=== PATIENT | male | born 1965 | race Hispanic/Latino ===

== ENCOUNTER 2018-02-15 17:43 | Emergency (ER) | payer OTHER ==
[2018-02-15] MEDS ORDERED: HYDROCODONE/ACETAMINOPHEN 5/325 MG TAB ONE (18:01)
== END 2018-02-15 19:20 | disposition home or self-care (01) ==
LOC: EDH 17:43
DX: S80.12XA Contusion of left lower leg, initial encounter (principal); I10 Essential (primary) hypertension; E11.9 Type 2 diabetes mellitus without complications; E78.5 Hyperlipidemia, unspecified; Z72.0 Tobacco use; V49.59XA Passenger injured in collision with other motor vehicles in traffic accident, initial encounter; Y93.89 Activity, other specified; Y92.89 Other specified places as the place of occurrence of the external cause; Y99.8 Other external cause status
CPT/HCPCS: 71045; 72170; 73590

== ENCOUNTER 2022-02-25 09:07 | Emergency (ER) | payer OTHER ==
[~2022-02-25] VITALS: Ht 188 cm; Wt 115.4 kg
[2022-02-25 09:28] VITALS: BP 153/91
[2022-02-25] MEDS ORDERED: CIPROFLOXACIN HCL 0.2%/HYDROCORT 1% 10 ML OTIC SUSP OTIC SCH (09:30)
[2022-02-25] MEDS ORDERED: ACETAMINOPHEN WITH CODEINE 1 TAB TAB PO ONE (09:30)
[2022-02-25] MEDS ORDERED: IBUPROFEN 600 MG TABLET PO ONE (09:30)
[2022-02-25] MEDS ORDERED: IBUP-2070 PO (09:32)
[2022-02-25] MEDS ORDERED: CIPR7.5D OT (09:32)
[2022-02-25] MEDS ORDERED: ACET-2079 PO (09:32)
== END 2022-02-25 09:55 | disposition home or self-care (01) ==
LOC: EDH 09:07
DX: S09.21XA Traumatic rupture of right ear drum, initial encounter (principal); E11.9 Type 2 diabetes mellitus without complications; I10 Essential (primary) hypertension; Z59.00 Homelessness unspecified; X58.XXXA Exposure to other specified factors, initial encounter; Y93.89 Activity, other specified; Y92.89 Other specified places as the place of occurrence of the external cause; Y99.8 Other external cause status

== ENCOUNTER 2022-02-27 02:10 | Emergency (ER) | payer OTHER ==
[~2022-02-27] VITALS: Ht 188 cm; Wt 119.3 kg
[~2022-02-27 02:10] MED LIST: ACET-2079 PO; CIPR7.5D OT; IBUP-2070 PO
[2022-02-27 02:28] VITALS: BP 111/79
[2022-02-27] MEDS ORDERED: AMOX500C2 PO (03:08)
[2022-02-27] MEDS ORDERED: CIPR7.5D OT (03:08)
[2022-02-27] MEDS ORDERED: ACETAMINOPHEN 325 MG TAB ONE (03:35)
[2022-02-27] MEDS ORDERED: ACETAMINOPHEN 325 MG TAB PO ONE (04:00)
== END 2022-02-27 03:38 | disposition home or self-care (01) ==
LOC: EDH 02:10
DX: H66.91 Otitis media, unspecified, right ear (principal); E11.9 Type 2 diabetes mellitus without complications; E78.00 Pure hypercholesterolemia, unspecified; I10 Essential (primary) hypertension; Z79.1 Long term (current) use of non-steroidal anti-inflammatories (NSAID)

== ENCOUNTER 2024-11-12 01:49 | Inpatient (IN) | payer SELFPAY ==
[2024-11-12] VITALS (9 sets, daily range): BP systolic 124–150; BP diastolic 71–101; PULSE 92–108; RESP 18–24; TEMP 98.1–100.6; O2SAT 95
[~2024-11-12] VITALS: Ht 180.3 cm; Wt 126.6 kg
[~2024-11-12 01:49] MED LIST changes: +AMOX500C2 PO
[2024-11-12 02:12] LABS: BASOPHILS # (AUTO) 0.03 K/uL (0.00-0.20); BASOPHILS % (AUTO) 0.5 % (0.0-5.0); EOSINOPHILS # (AUTO) 0.04 K/uL (0.00-0.70); EOSINOPHILS % (AUTO) 0.7 % (0.0-8.0); HEMATOCRIT 47.6 % (42-54); IMMATURE GRANULOCYTE ABSOLUTE 0.03 K/uL (0-1); LYMPHOCYTES % (AUTO) 34.5 % (21.0-51.0); MEAN CORPUSCULAR HEMOGLOBIN 29.4 pg (27.0-33.0); MEAN CORPUSCULAR HGB CONC 33.8 g/dL (32.0-36.0); MEAN CORPUSCULAR VOLUME 86.9 fL (79-99); MONOCYTES # (AUTO) 0.7 K/uL (0.1-1.0); MONOCYTES % (AUTO) 11.4 % (3.0-13.0); NEUTROPHILS # (AUTO) 3.1 K/uL (1.8-7.7); NEUTROPHILS % (AUTO) 52.4 % (40.0-77.0); PLATELET COUNT (AUTO) 199 K/uL (130-400); RED BLOOD CELL COUNT(AUTO) 5.48 MIL/uL (4.50-6.20); RED CELL DISTRIBUTION WIDTH 12.5 % (11.0-15.5); WHITE BLOOD COUNT (AUTO) 5.9 K/uL (4.8-10.8)
[2024-11-12 02:20] LABS: CREATININE 0.8 mg/dL (0.5-1.3)
[2024-11-12] MEDS ORDERED: IOHEXOL 350 MG/ML 100ML INFUS..BTL IV ONE (03:25)
--- NOTE | 2024-11-12 03:34 | NUR ---
ER PHYSICIAN DR HENDERSON AWARE OF PATIENT REFUSAL, OK TO DO CT WITHOUT CONTRAST
--- NOTE | 2024-11-12 03:34 | NUR ---
PATIENT PULLED OUT IV LINE, PATIENT ASKED WHAT HAPPENED TO IV. PATIENT STATED, IT FELL OUT. PATIENT INFORMED THE ER PHYSICIAN ORDERED CT SCAN WITH IV CONTRAST, PATIENT MADE AWARE HE WOULD NEED AN IV LINE FOR THE EXAM. PATIENT REFUSED THE IV PLACEMENT. PATIENT AGREED TO CT SCAN WITHOUT CONTRAST. PATIENT TAKEN TO CT SCAN
--- NOTE | 2024-11-12 03:43 | ERN ---
General Chief Complaint: Rib Pain Stated Complaint: C/O PAIN TO RIGHT RIBS AFTER FALL TONIGHT Time Seen by MD: 01:51 Source: patient History of Present Illness Initial Comments PATIENT IS A 59-YEAR-OLD MALE COMING IN TO BE EVALUATED FOR RIGHT ABDOMINAL RIGHT RIB PAIN. PER PATIENT EARLIER TODAY HE FELL DOWN AND STATES HE WAS HAVING PAIN IN THE RIGHT SIDE. PATIENT STABLE TO BREATHE WITHOUT ANY DISCOMFORT. Allergies: Coded Allergies: No Known Allergies (Unverified Allergy, Unknown, 02/25/22) Home Meds Active Scripts Ciprofloxacin HCl/Dexameth (Ciprodex Otic Suspension) 7.5 Ml Drops.susp, 7.5 ML OT TID for 5 Days, #4 DROP Prov:JATIN GOMEZ MD 02/27/22 Amoxicillin (Amoxicillin) 500 Mg Capsule, 500 MG PO TID for 10 Days, #30 CAP 0 Refills Prov:JATIN GOMEZ MD 02/27/22 Acetaminophen with Codeine (Acetaminophen-Cod #3 Tablet) 1 Each Tablet, 1 EACH PO QID, #15 TAB Prov:ALEIDA MIRANDA MD 02/25/22 Ibuprofen (Ibuprofen) 600 Mg Tablet, 600 MG PO Q6H PRN for PAIN, #30 TAB Prov:ALEIDA MIRANDA MD 02/25/22 Ciprofloxacin HCl/Dexameth (Ciprodex Otic Suspension) 7.5 Ml Drops.susp, 4 DROP OT BID for 7 Days, #5 ML Prov:ALEIDA MIRANDA MD 02/25/22 Past Medical History Past Medical History: Diabetes-Type II, Hypertension Medical History Other: NON COMPLIANT Past Surgical History: None Social History Social History: Negative, Other ROS Dictation CONSTITUTIONAL: NO CHILLS, NO FEVER, NO WEAKNESS, NO DIAPHORESIS, NO MALAISE. HEAD/FACE: NO SIGNS OF TRAUMA. EENT: NO EYE PAIN, NO BLURRED VISION, NO TEARING, NO DOUBLE VISION, NO EAR PAIN, NO EAR DISCHARGE, NO NOSE PAIN, NO NASAL CONGESTION, NO THROAT PAIN, NO THROAT SWELLING, NO MOUTH PAIN. RESPIRATORY: NO COUGH, NO ORTHOPNEA, NO SOB, NO STRIDOR, NO WHEEZING. CARDIOVASCULAR: NO CHEST PAIN, NO EDEMA, NO PALPITATIONS, NO SYNCOPE. GASTROINTESTINAL/ABDOMINAL: ABDOMINAL PAIN, NO CONSTIPATION, NO DIARRHEA, NO NAUSEA, NO VOMITING. GENITOURINARY: NO ABNORMAL DISCHARGE, NO DYSURIA, NO FREQUENT URINATION, NO HEMATURIA. NO COMPLAINTS OF PAIN IN THE GENITALS. MUSCULOSKELETAL: NO BACK PAIN, NO GOUT, NO JOINT PAIN, NO JOINT SWELLING, NO MUSCLE PAIN, NO MUSCLE STIFFNESS, NO NECK PAIN. INTEGUMENTARY: NO CHANGE IN COLOR, NO CHANGE IN HAIR/NAILS, NO DRYNESS, NO LESION, NO LUMPS, NO RASH. NEUROLOGICAL/PSYCH: NO ANXIETY, NOT DEPRESSED, NO EMOTIONAL PROBLEM, NO HEADACHE, NO NUMBNESS, NO PRE-EXISTING DEFICIT, NO HISTORY OF SEIZURES, NO TREMORS, NO WEAKNESS. HEMATOLOGIC/LYMPHATIC: NOT ANEMIC, NO HISTORY OF BLOOD CLOTS, NO APPARENT BLEEDING, NO BRUISING, GLANDS NOT SWOLLEN. ALL SYSTEMS NEGATIVE, EXCEPT NOTED. Physical Exam Physical Exam Dictation VITAL SIGNS: REVIEWED. GENERAL APPEARANCE: ALERT, ORIENTED X3, NO ACUTE DISTRESS, OBESE. HEAD AND FACE: NON-TRAUMATIC. EYES: PERRL, PINK CONJUNCTIVAS, EYELID NO TRAUMA, ANTERIOR CHAMBER CLEAR. EARS: PINNAS INTACT AND NO SIGNS OF TRAUMA OR ERYTHEMA. EAR CANALS CLEAR AND NO DISCHARGE. TMS NO ERYTHEMA. NOSE: NO DISCHARGE, NO BLEEDING. OROPHARYNX: MOUTH NORMAL, TEETH NO CARIES, TONGUE PINK. PHARYNX CLEAR, NO ERYTHEMA. TONSILS NO EXUDATES, NO ABSCESSES NOTED. MUCOUS MEMBRANE MOIST. NECK: SUPPLE, NON-TENDER, NO THYROMEGALY, NO MASSES, NO JVD, NO BRUITS. BREAST: DEFERRED. CHEST: NO TENDERNESS, NO CREPITUS, NO PARADOXICAL MOVEMENT, NO RETRACTIONS. LUNGS: CLEAR, WELL-VENTILATED, SYMMETRIC, NO RALES, NO WHEEZING, NO RHONCHI, NO STRIDOR, GOOD BREATH SOUNDS BILATERALLY. HEART: REGULAR RATE, REGULAR RHYTHM, NO MURMUR, NO GALLOPS. VASCULAR: NO PERIPHERAL EDEMA. ABDOMEN: SOFT, POSITIVE BOWEL SOUNDS, NONDISTENDED, NO GUARDING, RIGHT FLANK TENDER, NO REBOUND, NO MASSES NO HEPATOMEGALY, NO SPLENOMEGALY, NO HAMPTON'S SIGN, NO HERNIAS. RECTAL: DEFERRED. GENITAL: DEFERRED. NEUROLOGICAL: NORMAL SPEECH, GROSS MOTOR FUNCTION INTACT, GROSS SENSORY FUNCTION INTACT. MUSCULOSKELETAL: NECK NONTENDER, FULL RANGE OF MOTION, BACK NONTENDER, FULL RANGE OF MOTION. EXTREMITIES: NONTENDER, FULL RANGE OF MOTION. SKIN: COLOR PINK, DRY, NO TURGOR, NO RASH, NO LACERATIONS, NO ABRASIONS, NO CONTUSIONS. LYMPHATICS: DEFERRED. Results Laboratory and Microbiology Lab and Micro Result Laboratory Tests Test 11/12/24 02:04 White Blood Count 5.9 K/uL (4.8-10.8) Red Blood Count 5.48 MIL/uL (4.50-6.20) Hemoglobin 16.1 g/dL (14.0-18.0) Hematocrit 47.6 % (42-54) Mean Corpuscular Volume 86.9 fL (79-99) Mean Corpuscular Hemoglobin 29.4 pg (27.0-33.0) Mean Corpuscular Hemoglobin Concent 33.8 g/dL (32.0-36.0) Red Cell Distribution Width 12.5 % (11.0-15.5) Platelet Count 199 K/uL (130-400) Mean Platelet Volume 10.1 fL (7.5-10.5) Immature Granulocyte % (Auto) 0.5 % (0-1) Neutrophils (%) (Auto) 52.4 % (40.0-77.0) Lymphocytes (%) (Auto) 34.5 % (21.0-51.0) Monocytes (%) (Auto) 11.4 % (3.0-13.0) Eosinophils (%) (Auto) 0.7 % (0.0-8.0) Basophils (%) (Auto) 0.5 % (0.0-5.0) Neutrophils # (Auto) 3.1 K/uL (1.8-7.7) Lymphocytes # (Auto) 2.0 K/uL (1.0-4.8) Monocytes # (Auto) 0.7 K/uL (0.1-1.0) Eosinophils # (Auto) 0.04 K/uL (0.00-0.70) Basophils # (Auto) 0.03 K/uL (0.00-0.20) Absolute Immature Granulocyte (auto 0.03 K/uL (0-1) Nucleated Red Blood Cells 0.0 % (0.0-0.19) Sodium Level 134 mmol/L (136-145) L Potassium Level 4.0 mmol/L (3.5-5.1) Chloride Level 96 mmol/L (101-111) L Carbon Dioxide Level 31 mmol/L (21-32) Blood Urea Nitrogen 6 mg/dL (7-18) L Creatinine 0.8 mg/dL (0.5-1.3) Glomerular Filtration Rate Calc 103 mL/min (>90) Random Glucose 245 mg/dL (70-105) H Total Calcium 8.6 mg/dL (8.5-10.1) Total Creatine Kinase 387 U/L (21-232) H Labs Reviewed?: Yes EKG/XRAY/US/CT/MRI CT Scan Comment CT abdomen and pelvis without contrast-right rib fractures with pulmonary contusion, end pitch filler left kidney perinephric stranding to represent trauma MDM MDM: Differential diagnosis: Right rib contusion, trauma, alcohol intoxication, kidney contusion Rationale: Tests considered and ordered secondary to shared decision making include: labs, ECG and radiology Previous outside records reviewed: Old ER visits. Risk of complication and/or morbidity or mortality of patient management: None Medications-Per medication reconciliation Need for hospitalization: Patient does meet criteria for hospitalization. Need for emergency major/minor surgery: No There are no social concerns with this patient. Prescription drug management Prescriptions will include symptomatic care Patient's prior external medical records from other ER visits were reviewed by me as indicated. Prior testing and results from previous visits were reviewed. Prior tests were taken into account with medical decision making and resource utilization, independent historian/historians were used to obtain complete medical history. I independently interpreted the test that were performed, results were reviewed by me and considered findings on radiology if ordered. Medical management and examination interpretation discussions were had by me with other qualified healthcare professionals as indicated for the patient's care. Patient will be admitted under the care of hospitalist group for ongoing management. ED Course Orders Procedure Category Date Status Time Cbc With Differential LAB 11/12/24 Complete 01:54 Basic Metabolic Panel LAB 11/12/24 Complete 01:54 Creatine Kinase, Total LAB 11/12/24 Complete 01:54 Iohexol (Omnipaque) PHA 11/12/24 Complete 03:25 Ct Abdomen/Pelvis W/O CT 11/12/24 Taken Contrast 02:22 Ondansetron 4mg Inj PHA 11/12/24 Complete (Zofran 4mg Inj) 06:00 Morphine 2mg Syg PHA 11/12/24 Complete (Morphine 2mg Syg) 06:00 Alcohol, Blood LAB 11/12/24 Logged 05:57 Drug Screen Urine LAB 11/12/24 Logged 05:57 Current Medications Medications (Trade) Dose Ordered Sig/Hai Route PRN Reason Start Time Stop Time Status Last Admin Dose Admin Iohexol (Omnipaque) 35,000 mg STK-MED ONCE IV 11/12/24 03:25 11/12/24 03:25 DC Morphine Sulfate (morPHINE 2MG SYG) 2 mg ONCE ONCE IVP 11/12/24 06:00 11/12/24 06:01 DC 11/12/24 05:59 Ondansetron HCl (zoFRAN 4MG INJ) 4 mg ONCE ONCE IVP 11/12/24 06:00 11/12/24 06:01 DC 11/12/24 05:59 Vital Signs Date Time Temp Pulse Resp B/P (MAP) Pulse Ox O2 Delivery O2 Flow Rate FiO2 11/12/24 06:19 98.6 76 20 112/78 100 Room Air* 0 21 11/12/24 05:04 98.6 80 20 108/76 100 Room Air* 0 21 11/12/24 02:04 98.6 74 20 128/74 100 Room Air* 0 21 11/12/24 01:51 99.1 90 24 177/103 98 Room Air DX & DISP Disposition: Inpatient Decision to Admit Time: 06:22 Departure Impression: Primary Impression: Pulmonary contusion Additional Impressions: Rib fractures, Alcohol intoxication Condition: Stable Referrals: SELF,REFERRAL (PCP) ROC HENDERSON MD Nov 12, 2024 03:43
[2024-11-12] MEDS: ondanSETRON 4MG INJ IVP ONE (05:59)
[2024-11-12] MEDS: morPHINE 2 MG SYG IVP ONE (05:59)
[2024-11-12] MEDS ORDERED: PoTASSium chloRIDE 20MEQ/100ML 100 ML IV PRN (06:30)
[2024-11-12] MEDS ORDERED: ondanSETRON 4MG INJ IVP PRN (06:30)
[2024-11-12] MEDS ORDERED: PoTASSium chl 10% ELIXIR 20MEQ 20 MEQ/15 ML UDCUP PO PRN (06:30)
[2024-11-12] MEDS ORDERED: PoTASSium chloRIDE 20MEQ ER 20 MEQ ERTAB PO PRN (06:30)
[2024-11-12] MEDS ORDERED: PHARMACY COMMUNICATION MISC PRN (06:30)
[2024-11-12] MEDS ORDERED: LORazepam 2 MG/ML 1 ML VIAL IVP PRN (06:30)
[2024-11-12] MEDS ORDERED: acetaMINOPHEN 325 MG TAB PO PRN (06:30)
--- NOTE | 2024-11-12 06:31 | HP ---
[facility] HISTORY AND PHYSICAL Date of Service: Nov 12, 2024 Time of Service: 06:29 HISTORY OF PRESENT ILLNESS: [ ] This is a 59-year-old male that presents in ER with right rib pain apparently patient had a fall at home prior coming to ED. apparently patient reports he slipped on stairs and landed on his right side. ER WORKUP WAS CONSISTENT WITH RIGHT 10TH RIB FRACTURE IN PERINEPHRIC STRANDING CRITICAL TEAM WAS CONSULTED. REVIEW OF SYSTEMS CONSTITUTIONAL: Denies fevers, chills, or night sweats. No unintentional weight loss reported. NEUROLOGICAL: Denies headache, amaurosis fugax, motor weakness, sensory deficit, vertigo/spinning sensation, gait abnormalities, or tremors. ENT: No hearing loss, otalgia, otorrhea, rhinitis, rhinorrhea, hoarseness, or sore throat. CARDIOVASCULAR: Denies any exertional angina, dyspnea on exertion, orthopnea, paroxysmal nocturnal dyspnea, palpitations, life-threatening arrhythmias, claudication. PULMONARY: Denies any shortness of breath, cough, phlegm/sputum, hemoptysis, pleuritic chest pain. SLEEP: Denies morning headaches, daytime somnolence or napping. Denies difficulty falling asleep, staying asleep, waking from sleep. Denies knowledge of snoring. GASTROINTESTINAL: Denies any type of dysphagia to either liquids or solids. Denies nausea, vomiting, pyrosis, early satiety, abdominal pain, diarrhea, constipation, or changes in stool consistency or caliber. Denies coffee-ground emesis, hematemesis, hematochezia, or melanotic stools. GENITOURINARY: Denies frequency, urgency, nocturia, hematuria or incontinence (Storage/Irritative symptoms.) Low urinary stream, straining to void, urinary intermittency or hesitancy, splitting of the voiding stream, terminal dribbling. ENDOCRINOLOGIC: Denies polyuria, polydipsia, polyphagia or heat/cold intolerances. HEMATOLOGIC: Denies thrombophilia/previous clots, or coagulopathy/bleeding d isorders. ONCOLOGIC: Denies personal history of malignancy. DERMATOLOGIC: Denies rashes or pruritus. PSYCHIATRIC: Denies any suicidal or homicidal ideation. Denies hallucinations. PAST MEDICAL HISTORY: [ ] Hypertension diabetes PAST SURGICAL HISTORY: [ ] None PAST SOCIAL HISTORY: [ ] Smoke tobacco products 2-3 cigarettes daily alcohol on a daily basis 2-3 beers. FAMILY HISTORY: [ ] Noncontributory Coded Allergies: No Known Allergies (Unverified Allergy, Unknown, 02/25/22) PHYSICAL EXAM GENERAL APPEARANCE: The patient is awake, alert, and oriented, in no acute cardiopulmonary distress. NEUROLOGICAL: Cranial nerves II-XII grossly intact. Motor is 5/5 in bilateral upper and lower extremities proximal to distal. No sensory deficits. HEENT: Face is symmetric. Pupils are equal and reactive. Extraocular movements are intact. NECK: Supple. No JVD. No thyromegaly. No submental, submandibular, pre- /postauricular, occipital or supraclavicular lymphadenopathy. CHEST: Normal chest expansion. No Telemetry. LUNGS: Absence of any rales, rhonchi or any wheezing. CARDIOVASCULAR: Regular. S1 and S2 normal. No appreciable rubs, murmurs or ga llops. ABDOMEN: Soft, nontender, and nondistended. There is no rebound, voluntary guarding, or rigidity. : Deferred. No Witt. EXTREMITIES: Non-edematous and not cyanotic. No clubbing. Good capillary refill. SKIN: No skin breakdown. Vital Sign (Last 24 Hours) 11/12/24 06:19 Temp 98.6 Pulse 76 Resp 20 B/P (MAP) 112/78 Pulse Ox 100 O2 Delivery Room Air* O2 Flow Rate 0 FiO2 21 LABS: Laboratory: Test 11/12/24 02:04 Range/Units White Blood Count 5.9 4.8-10.8 K/uL Red Blood Count 5.48 4.50-6.20 MIL/uL Hemoglobin 16.1 14.0-18.0 g/dL Hematocrit 47.6 42-54 % Mean Corpuscular Volume 86.9 79-99 fL Mean Corpuscular Hemoglobin 29.4 27.0-33.0 pg Mean Corpuscular Hemoglobin Concent 33.8 32.0-36.0 g/dL Red Cell Distribution Width 12.5 11.0-15.5 % Platelet Count 199 130-400 K/uL Mean Platelet Volume 10.1 7.5-10.5 fL Immature Granulocyte % (Auto) 0.5 0-1 % Neutrophils (%) (Auto) 52.4 40.0-77.0 % Lymphocytes (%) (Auto) 34.5 21.0-51.0 % Monocytes (%) (Auto) 11.4 3.0-13.0 % Eosinophils (%) (Auto) 0.7 0.0-8.0 % Basophils (%) (Auto) 0.5 0.0-5.0 % Neutrophils # (Auto) 3.1 1.8-7.7 K/uL Lymphocytes # (Auto) 2.0 1.0-4.8 K/uL Monocytes # (Auto) 0.7 0.1-1.0 K/uL Eosinophils # (Auto) 0.04 0.00-0.70 K/uL Basophils # (Auto) 0.03 0.00-0.20 K/uL Absolute Immature Granulocyte (auto 0.03 0-1 K/uL Nucleated Red Blood Cells 0.0 0.0-0.19 % Sodium Level 134 L 136-145 mmol/L Potassium Level 4.0 3.5-5.1 mmol/L Chloride Level 96 L 101-111 mmol/L Carbon Dioxide Level 31 21-32 mmol/L Blood Urea Nitrogen 6 L 7-18 mg/dL Creatinine 0.8 0.5-1.3 mg/dL Glomerular Filtration Rate Calc 103 >90 mL/min Random Glucose 245 H 70-105 mg/dL Total Calcium 8.6 8.5-10.1 mg/dL Total Creatine Kinase 387 H 21-232 U/L DIAGNOSTICS / RADIOLOGY: [ ] ASSESSMENT: right posterior 10th rib fracture SECONDARY TO MECHANICAL GROUND LEVEL FALL POA possible underlying contusion as well as possible contusion of right kidney acute intractable rib pain Alcohol intoxication secondary to alcohol dependency POA Active smoker POA electrolytes derangement: hyponatremia DM Type II with Hyperglycemia Obesity BMI 40 PLAN: [ ] Admit: Medical floor condition: Fair Status: Full code IVF: BANANA BAG 3x [facility] trauma team Antibiotics: None CIWA PROTOCOL Labs cbc, cmp, mag+ A1c, Lipid panel, TSH Replace electrolytes as needed as per protocol to keep potassium above 4.0 magnesium 2.0. A.c. HS monitoring with sliding scale coverage Oxygen supplemental to keep O2 sats above 92%. PRN: MEDICATIONS Tylenol 650 mg po every 4 hrs for fever zofran 4 mg IV every 6 hrs for n/v Hydralazine 5 mg IV every 4 hrs systolic pressure > 160 bowel regiment: colace 100 mg PO BID PRN constipation Modify risk factors weight management discussed Provided counseling on alcohol Pain management: [place] 5/325 p.o. every 6 hours, morphine2 mg every 4 hours Supportive measures: DVT ppx, GI ppx fall precaution all questions answered time spent: > 35 min Supervising MD: Dr. bernstein c/d This document was generated in part using voice recognition software, occasional wrong word or sound alike substitutions may have occurred due to the inherent limitations of voice recognition software. Read the chart carefully and recognize using context, where the substitutions have occurred. Although every effort was made to edit the content, firewood cutter and typing errors may occur ATTESTATION BY PHYSICIAN I have seen and examined the patient. I reviewed the documentation, medical decision making, and treatment plan as noted by the mid-level provider above. I agree with the findings and plan of care. NINI BERNSTEIN MD, ELIZABETH NP Nov 12, 2024 06:31
[2024-11-12] MEDS: THIAMINE HCL 100 MG, FOLic ACID 5 MG/ML VIAL 1 MG, M.V.I. IV [ADULT] 10 ML in 0.9%NACL ... IV SCH (06:43)
[2024-11-12] MEDS: FOLic ACID 1 MG TABLET PO SCH (08:15)
[2024-11-12] MEDS: FAMOTIDINE 20MG TAB PO SCH (08:15)
[2024-11-12] MEDS: THIAMINE HCL 100 MG/ML 2ML VIAL IVP SCH (08:16)
[2024-11-12] MEDS: HYDROcodone/APAP 5/325 1 TAB TABLET PO PRN (08:16)
[2024-11-12] MEDS: INSULIN humuLIN R 100 UNIT/ML 3ML SQ SCH (08:20)
--- NOTE | 2024-11-12 09:49 | HMCIMG ---
CT ABDOMEN/PELVIS W/O CONTRAST HISTORY: Right flank pain COMPARISON: None TECHNIQUE: Multiple sequential axial images of the abdomen and pelvis were obtained from the dome of the diaphragm through symphysis pubis. Patient was not given contrast through intravenous route. Oral contrast was not given. FINDINGS: Right diaphragmatic pleural calcifications are seen suggestive of prior asbestos exposure. Tiny right pleural effusion is seen. Study is limited due to lack of intravenous contrast.. There is right ninth posterior rib fracture with mild displacement. There is no evidence of parenchymal disease or pulmonary nodule of the visualized lower lungs. Degenerative changes of the thoracolumbar spine are present. The heart is not enlarged. The liver, spleen, adrenal glands and pancreas are unremarkable. There is no evidence of hydronephrosis bilaterally. No evidence of renal stone is seen. There is left perinephric fat stranding may be related to pyelonephritis. Urinalysis correlation may be helpful. Fecal material is seen in the colon. There are normal size retroperitoneal and mesenteric lymph nodes. No ascites is seen. Atherosclerotic changes are present. Pelvic sidewalls are symmetric bilaterally. Bladder is well distended without wall thickening. IMPRESSION: 1. There is left perinephric fat stranding may be related to pyelonephritis. Urinalysis correlation may be helpful. There is fracture with mild displacement involving the right posterior ninth rib. CT was performed with one or more following dose reduction techniques: automated exposure control, adjustment of the mA and kv according to patient's size, or use of a iterative reconstruction technique.
[2024-11-12] MEDS: morPHINE 2 MG SYG IVP PRN (11:45)
[2024-11-12] MEDS: LIDOCAINE 4% ADH..PATCH TP SCH (11:45)
--- NOTE | 2024-11-12 12:50 | HP ---
Mechanism of Injury Scene LOC: Negative Fall: Fall(feet): (slipped on stairs) Allergies Allergies: Coded Allergies: No Known Allergies (Unverified Allergy, Unknown, 02/25/22) Social History Social History: Tobacco (Yes), ETOH (Yes) Medications Discontinued Medications Acetaminophen with Codeine (Acetaminophen-Cod #3 Tablet), 1 EACH PO QID Amoxicillin (Amoxicillin), 500 MG PO TID Ciprofloxacin HCl/Dexameth (Ciprodex Otic Suspension), 4 DROP OT BID Ciprofloxacin HCl/Dexameth (Ciprodex Otic Suspension), 7.5 ML OT TID Ibuprofen (Ibuprofen), 600 MG PO Q6H PRN for PAIN Neurological Exam Bilateral Upper Ext. Strength: Equal Bilateral Lower Ext. Strength: Equal [place] Coma Scale Arash Coma Scale (GCS): [place] Coma Scale (GCS) Response (Comments) Value Eye Opening Spontaneous 4 Motor Response Obeys 6 Verbal Response Oriented 5 Total 15 Head Head: Atraumatic Trauma Eyes: Pupils (equal round and reactive) Trauma Eyes: Right TM (martin black circular object lodged in the EAM) Trauma Mouth/Throat: Clear, [place], Moist Trauma Scalp: Intact Neck Neck: No Cervical Tenderness Trachea: Midline Chest Chest: Symmetrical Excursion Abdomen Abdomen: Soft, Non-tender Pelvis/Perineum Pelvic Tenderness: No Extremities Extremities: Normal Back Back: Tenderness (right mid back with minor abrasions) Results Labs: Laboratory Tests Test 11/12/24 02:04 11/12/24 06:48 11/12/24 07:52 11/12/24 11:36 Range/Units White Blood Count 5.9 4.8-10.8 K/uL Red Blood Count 5.48 4.50-6.20 MIL/uL Hemoglobin 16.1 14.0-18.0 g/dL Hematocrit 47.6 42-54 % Mean Corpuscular Volume 86.9 79-99 fL Mean Corpuscular Hemoglobin 29.4 27.0-33.0 pg Mean Corpuscular Hemoglobin Concent 33.8 32.0-36.0 g/dL Red Cell Distribution Width 12.5 11.0-15.5 % Platelet Count 199 130-400 K/uL Mean Platelet Volume 10.1 7.5-10.5 fL Immature Granulocyte % (Auto) 0.5 0-1 % Neutrophils (%) (Auto) 52.4 40.0-77.0 % Lymphocytes (%) (Auto) 34.5 21.0-51.0 % Monocytes (%) (Auto) 11.4 3.0-13.0 % Eosinophils (%) (Auto) 0.7 0.0-8.0 % Basophils (%) (Auto) 0.5 0.0-5.0 % Neutrophils # (Auto) 3.1 1.8-7.7 K/uL Lymphocytes # (Auto) 2.0 1.0-4.8 K/uL Monocytes # (Auto) 0.7 0.1-1.0 K/uL Eosinophils # (Auto) 0.04 0.00-0.70 K/uL Basophils # (Auto) 0.03 0.00-0.20 K/uL Absolute Immature Granulocyte (auto 0.03 0-1 K/uL Nucleated Red Blood Cells 0.0 0.0-0.19 % Sodium Level 134 L 136-145 mmol/L Potassium Level 4.0 3.5-5.1 mmol/L Chloride Level 96 L 101-111 mmol/L Carbon Dioxide Level 31 21-32 mmol/L Blood Urea Nitrogen 6 L 7-18 mg/dL Creatinine 0.8 0.5-1.3 mg/dL Glomerular Filtration Rate Calc 103 >90 mL/min Random Glucose 245 H 70-105 mg/dL Total Calcium 8.6 8.5-10.1 mg/dL Total Creatine Kinase 387 H 21-232 U/L Serum Alcohol 8 0-10 mg/dL Whole Blood Glucose 260 H 202 H 70-110 MG/DL Radiology Imaging: PATIENT: FRANCES STILES MR#: [id number] : 1965 SEX: M AGE: 59 LOCATION: [facility] ORDER 2 STATUS: ADM IN REPORT#: [id number] SERVICE 1 REASON: RIGHT FLANK/ RIB PAIN ORDERING PHYSICIAN: ROC HENDERSON MD PROCEDURE: ABD PEL WO - CT ABDOMEN/PELVIS W/O CONTRAST CT ABDOMEN/PELVIS W/O CONTRAST HISTORY: Right flank pain COMPARISON: None TECHNIQUE: Multiple sequential axial images of the abdomen and pelvis were obtained from the dome of the diaphragm through symphysis pubis. Patient was not given contrast through intravenous route. Oral contrast was not given. FINDINGS: Right diaphragmatic pleural calcifications are seen suggestive of prior asbestos exposure. Tiny right pleural effusion is seen. Study is limited due to lack of intravenous contrast.. There is right ninth posterior rib fracture with mild displacement. There is no evidence of parenchymal disease or pulmonary nodule of the visualized lower lungs. Degenerative changes of the thoracolumbar spine are present. The heart is not enlarged. The liver, spleen, adrenal glands and pancreas are unremarkable. There is no evidence of hydronephrosis bilaterally. No evidence of renal stone is seen. There is left perinephric fat stranding may be related to pyelonephritis. Urinalysis correlation may be helpful. Fecal material is seen in the colon. There are normal size retroperitoneal and mesenteric lymph nodes. No ascites is seen. Atherosclerotic changes are present. Pelvic sidewalls are symmetric bilaterally. Bladder is well distended without wall thickening. IMPRESSION: 1. There is left perinephric fat stranding may be related to pyelonephritis. Urinalysis correlation may be helpful. There is fracture with mild displacement involving the right posterior ninth rib. CT was performed with one or more following dose reduction techniques: automated exposure control, adjustment of the mA and kv according to patient's size, or use of a iterative reconstruction technique. DICTATED BY: BARON BENITEZ MD DATE: 11/12/2413 ELECTRONICALLY SIGNED BY: BARON BENITEZ MD DATE: 11/12/24 0949 Injuries Injury List: right 10 rib fracture perinephric stranding Plan Discussed With: Consults: Medicine ER doc for removal of fb from right ear Admit to: Admit to: Med-Surg Trauma Note: Trauma Note: This is a 59 year old male with right posterior 10th rib fracture, possible underlying contusion as well as possible contusion of right kidney. I recommend to admit patient for pain control and monitoring of respiratory status. Medicine to assist in diagnosis of recent frequent falls. ED to eval right ear for possible foreign body. YECENIA GR DO Nov 12, 2024 12:49
[2024-11-12] MEDS ORDERED: hydrALAZine 20MG/ML VIAL IV PRN (13:30)
[2024-11-12] MEDS: BENZONATATE 100 MG CAPSULE PO PRN (13:57)
[2024-11-12] MEDS: hydroMORPHone 1 MG INJ IVP ONE (13:58)
[2024-11-12 19:13] LABS: AMPHET/METH SCREEN,URINE NEGATIVE (NEGATIVE); BARBITURATE SCREEN, URINE NEGATIVE (NEGATIVE); BENZODIAZEPINES SCREEN,URINE NEGATIVE (NEGATIVE); CANNABINOID SCREEN,URINE NEGATIVE (NEGATIVE); COCAINE SCREEN,URINE POSITIVE (NEGATIVE); OPIATE SCREEN,URINE POSITIVE (NEGATIVE); PHENCYCLIDINE SCREEN,URINE NEGATIVE (NEGATIVE)
[2024-11-12] MEDS: doCUSate SODIUM 100 MG CAP PO SCH (20:34)
--- NOTE | 2024-11-12 21:22 | NUR ---
REPORT GIVEN TO STEPHANIE HADLEY
[2024-11-12] MEDS: chlordiazePOXIDE HCL 25 MG CAP PO PRN (21:55)
[2024-11-13 03:55] VITALS: BP 157/98; PULSE 109; RESP 22; TEMP 99.9
[2024-11-13 06:10] LABS: HEMOGLOBIN A1C 9.6 % (4.0-6.0)
[2024-11-13 06:17] LABS: THYROID STIMULATING HORMONE 0.75 uIU/mL (0.36-3.74)
[2024-11-13 08:00] VITALS: BP 135/79; PULSE 82; RESP 19; TEMP 98.2
[2024-11-13 08:51] VITALS: O2SAT 96
--- NOTE | 2024-11-13 08:56 | NUR ---
ROUNDS/MEDS PRIMARY NURSE IN AT BEDSIDE. PATIENT STATES HE HAS A PAIN OF AN 8/10 TO RIGHT FLANK/RIBS. PATIENT HAS RECEIVED PAIN MEDICATION. PATIENT NOTED TO BE UNSTEADY WHEN STANDING AND WAS RECOMMENDED BY PRIMARY NURSE TO TAKE A SEAT OR LAY DOWN DUE TO UNSTEADINESS. PATIENT EDUCATED ON THE IMPORTANCE OF TAKING NECESSARY PRECAUTIONS TO KEEP SAFE, PATIENT VERBALIZES UNDERSTANDING AND STATES HE DOES NOT FEEL LIKE SITTING AT THIS TIME. PLAN OF CARE ON GOING.
--- NOTE | 2024-11-13 10:42 | PN ---
[facility] PROGRESS NOTE Date of Service: Nov 13, 2024 Time of Service: 10:37 SUBJECTIVE: [ ] This is a 59-year-old male that presents in ER with right rib pain apparently patient had a fall at home prior coming to ED. apparently patient reports he slipped on stairs and landed on his right side. ER WORKUP WAS CONSISTENT WITH RIGHT 10TH RIB FRACTURE IN PERINEPHRIC STRANDING CRITICAL TEAM WAS CONSULTED. 11/13/24 patient examined patient on his needs bedside patient unable to late on his back we will have Physical therapy work with patient discussed patient's condition physical therapist. Patient continues on pain medication around the clock. Patient lives alone. Case management was made aware discharge planning. Reassess: PT work with patient applied abd binding now patient is able to stand upright: with some pain improvement. Flu A positive : started on tamiflu he is currently on room air REVIEW OF SYSTEMS A14 point ROS was obtained all relevant positive was documented otherwise ROS is negative PHYSICAL EXAM GENERAL APPEARANCE: The patient is awake, alert, and oriented, in no acute cardiopulmonary distress. NEUROLOGICAL: Cranial nerves II-XII grossly intact. Motor is 5/5 in bilateral upper and lower extremities proximal to distal. No sensory deficits. HEENT: Face is symmetric. Pupils are equal and reactive. Extraocular movements are intact. NECK: Supple. No JVD. No thyromegaly. No submental, submandibular, pre- /postauricular, occipital or supraclavicular lymphadenopathy. CHEST: Normal chest expansion. No Telemetry. LUNGS: Absence of any rales, rhonchi or any wheezing. CARDIOVASCULAR: Regular. S1 and S2 normal. No appreciable rubs, murmurs or gallops. ABDOMEN: Soft, nontender, and nondistended. There is no rebound, voluntary guarding, or rigidity. : Deferred. No Witt. EXTREMITIES: Non-edematous and not cyanotic. No clubbing. Good capillary refill. SKIN: No skin breakdown. Vital Signs (last 8hr) Date Time Temp Pulse Resp B/P (MAP) Pulse Ox O2 Delivery O2 Flow Rate FiO2 11/13/24 08:51 96 Room Air* 0 21 11/13/24 08:00 98.2 82 19 135/79 96 Room Air 11/13/24 03:55 99.9 109 22 157/98 97 Room Air LABS: Laboratory: Test 11/13/24 05:36 2/26/25 04:52 11/12/24 18:52 11/12/24 06:48 Range/Units Hemoglobin A1c 9.6 H 4.0-6.0 % Estimated Average Glucose (eAG) 229 H 70-126 mg/dL Triglycerides Level 103 30-200 mg/dL Cholesterol Level 121 <200 mg/dL LDL Cholesterol 72 0-99 mg/dL HDL Cholesterol 37 29-71 mg/dL Thyroid Stimulating Hormone (TSH) 0.75 0.36-3.74 uIU/mL Whole Blood Glucose 200 H 70-110 MG/DL Urine Opiates Screen POSITIVE H NEGATIVE Urine Barbiturates Screen NEGATIVE NEGATIVE Urine Phencyclidine Screen NEGATIVE NEGATIVE Urine Amphetamines Screen NEGATIVE NEGATIVE Urine Benzodiazepines Screen NEGATIVE NEGATIVE Urine Cocaine Screen POSITIVE H NEGATIVE Urine Marijuana (THC) Screen NEGATIVE NEGATIVE Serum Alcohol 8 0-10 mg/dL Test 11/12/24 02:04 Range/Units White Blood Count 5.9 4.8-10.8 K/uL Red Blood Count 5.48 4.50-6.20 MIL/uL Hemoglobin 16.1 14.0-18.0 g/dL Hematocrit 47.6 42-54 % Mean Corpuscular Volume 86.9 79-99 fL Mean Corpuscular Hemoglobin 29.4 27.0-33.0 pg Mean Corpuscular Hemoglobin Concent 33.8 32.0-36.0 g/dL Red Cell Distribution Width 12.5 11.0-15.5 % Platelet Count 199 130-400 K/uL Mean Platelet Volume 10.1 7.5-10.5 fL Immature Granulocyte % (Auto) 0.5 0-1 % Neutrophils (%) (Auto) 52.4 40.0-77.0 % Lymphocytes (%) (Auto) 34.5 21.0-51.0 % Monocytes (%) (Auto) 11.4 3.0-13.0 % Eosinophils (%) (Auto) 0.7 0.0-8.0 % Basophils (%) (Auto) 0.5 0.0-5.0 % Neutrophils # (Auto) 3.1 1.8-7.7 K/uL Lymphocytes # (Auto) 2.0 1.0-4.8 K/uL Monocytes # (Auto) 0.7 0.1-1.0 K/uL Eosinophils # (Auto) 0.04 0.00-0.70 K/uL Basophils # (Auto) 0.03 0.00-0.20 K/uL Absolute Immature Granulocyte (auto 0.03 0-1 K/uL Nucleated Red Blood Cells 0.0 0.0-0.19 % Sodium Level 134 L 136-145 mmol/L Potassium Level 4.0 3.5-5.1 mmol/L Chloride Level 96 L 101-111 mmol/L Carbon Dioxide Level 31 21-32 mmol/L Blood Urea Nitrogen 6 L 7-18 mg/dL Creatinine 0.8 0.5-1.3 mg/dL Glomerular Filtration Rate Calc 103 >90 mL/min Random Glucose 245 H 70-105 mg/dL Total Calcium 8.6 8.5-10.1 mg/dL Total Creatine Kinase 387 H 21-232 U/L Current Medications Medications (Trade) Dose Ordered Sig/Hai Route PRN Reason Start Time Stop Time Status Last Admin Dose Admin Acetaminophen (TYLenol 325MG TAB) 650 mg Q4H PRN PO TEMPERATURE GREATER THAN 101.5 11/12/24 06:30 12/12/24 06:29 Acetaminophen/ Hydrocodone Bitart (NORco 5/325MG) 1 tab Q6H PRN PO MODERATE PAIN (4-6) 11/12/24 06:30 11/17/24 06:29 11/13/24 03:44 1 TAB Benzonatate (Tessalon 100mg Caps) 100 mg Q8H PRN PO cough 11/12/24 14:00 12/12/24 13:59 11/13/24 05:52 100 MG Chlordiazepoxide HCl (LIBrium 25 MG CAP) 25 mg Q2H PRN PO ALCOHOL WITHDRAWAL PROTOCOL 11/12/24 06:30 11/19/24 06:29 11/12/24 21:55 25 MG Docusate Sodium (COLace 100MG CAP) 100 mg BID PO 11/12/24 21:00 12/12/24 20:59 11/13/24 08:38 100 MG Famotidine (Pepcid 20mg Tab) 20 mg BID PO 11/12/24 09:00 12/12/24 08:59 11/13/24 08:38 20 MG Folic Acid (FOLic ACID 1 MG TABLET) 1 mg DAILY PO 11/12/24 09:00 12/12/24 08:59 11/13/24 08:38 1 MG Hydralazine HCl (APRESOLine 20MG INJ) 5 mg Q4H PRN IV ADMINISTER FOR SBP > 160 11/12/24 13:30 12/12/24 13:29 Insulin Human Regular (humuLIN R 100 UNIT/ML 3ML) INSULIN SLIDING SCAL... ACHS SQ 11/12/24 07:30 12/12/24 07:29 11/13/24 05:51 4 UNIT Lidocaine (Lidocaine Patch 4%) 1 each DAILY TP 11/12/24 11:30 12/12/24 11:29 11/13/24 08:38 1 EACH Lorazepam (AtiVAN) 2 mg Q4H PRN IVP ALCOHOL WITHDRAWAL PROTOCOL 11/12/24 06:30 11/19/24 06:29 Magnesium Sulfate 50 ml @ 0 mls/hr PROTOCOL PRN IV low mag level 11/12/24 06:30 12/12/24 06:29 Morphine Sulfate (morPHINE 2MG SYG) 2 mg Q4H PRN IVP SEVERE PAIN (7-10) 11/12/24 11:30 11/19/24 11:29 11/13/24 08:38 2 MG Ondansetron HCl (zoFRAN 4MG INJ) 4 mg Q6H PRN IVP NAUSEA/VOMITING 11/12/24 06:30 12/12/24 06:29 Pharmacy Profile Note (Pharmacy Communication) 1 each PROTOCOL PRN MISC ETOH Withdrawal Score changes 11/12/24 06:30 11/19/24 06:29 Potassium Chloride 100 ml @ 100 mls/hr AD PRN IV POTASSIUM PROTOCOL 11/12/24 06:30 12/12/24 06:29 Potassium Chloride (K-Dur/Klor-Con 20meq) 20 meq AD PRN PO POTASSIUM PROTOCOL 11/12/24 06:30 12/12/24 06:29 Potassium Chloride (KCl 10% Elixir 20meq/15ml) 20 meq AD PRN PO POTASSIUM PROTOCOL 11/12/24 06:30 12/12/24 06:29 Thiamine HCl (Vitamin B-1) 100 mg DAILY IVP 11/12/24 09:00 12/12/24 08:59 11/13/24 08:38 100 MG Thiamine HCl 100 mg/Folic Acid 1 mg/Multivitamins/ Minerals 10 ml/ Sodium Chloride 1,011.2 ml @ 100 mls/ hr Q24H IV 11/12/24 06:30 11/14/24 16:37 11/13/24 08:38 100 MLS/HR DIAGNOSTICS / RADIOLOGY: [ ] ASSESSMENT: febrile secondary to positive influeza A viral syndrome right posterior 10th rib fracture SECONDARY TO MECHANICAL GROUND LEVEL FALL POA possible underlying contusion as well as possible contusion of right kidney acute intractable rib pain Alcohol intoxication secondary to alcohol dependency POA Active smoker POA electrolytes derangement: hyponatremia hypomagnesemia DM Type II with Hyperglycemia Obesity BMI 40 PLAN: [ ] Admit: Medical floor condition: Fair Status: Full code IVF: BANANA BAG 3x [facility] trauma team Antibiotics: Tamiflu 75 mg po bid CIWA PROTOCOL Labs cbc, cmp, mag+ Replace electrolytes as needed as per protocol to keep potassium above 4.0 magnesium 2.0. A.c. HS monitoring with sliding scale coverage Oxygen supplemental to keep O2 sats above 92%. PRN: MEDICATIONS Tylenol 650 mg po every 4 hrs for fever zofran 4 mg IV every 6 hrs for n/v Hydralazine 5 mg IV every 4 hrs systolic pressure > 160 bowel regiment: colace 100 mg PO BID PRN constipation Modify risk factors weight management discussed Provided counseling on alcohol Pain management: Clifford 5/325 p.o. every 6 hours, morphine2 mg every 4 hours case management: discharged planning PT services eval and treat. Supportive measures: DVT ppx, GI ppx fall precaution all questions answered Supervising MD: Dr. bernstein c/d This document was generated in part using voice recognition software, occasional wrong word or sound alike substitutions may have occurred due to the inherent limitations of voice recognition software. Read the chart carefully and recognize using context, where the substitutions have occurred. Although every effort was made to edit the content, gymnastics coach and typing errors may occur ATTESTATION BY PHYSICIAN I have seen and examined the patient. I reviewed the documentation, medical decision making, and treatment plan as noted by the mid-level provider above. I agree with the findings and plan of care. NINI BERNSTEIN MD, ELIZABETH NP Nov 13, 2024 10:42
[2024-11-13 11:07] LABS: BASOPHILS # (AUTO) 0.02 K/uL (0.00-0.20); BASOPHILS % (AUTO) 0.4 % (0.0-5.0); HEMATOCRIT 43.7 % (42-54); IMMATURE GRANULOCYTE ABSOLUTE 0.02 K/uL (0-1); LYMPHOCYTES # (AUTO) 1.4 K/uL (1.0-4.8); LYMPHOCYTES % (AUTO) 28.3 % (21.0-51.0); MEAN CORPUSCULAR HEMOGLOBIN 29.2 pg (27.0-33.0); MEAN CORPUSCULAR HGB CONC 33.4 g/dL (32.0-36.0); MEAN CORPUSCULAR VOLUME 87.4 fL (79-99); MONOCYTES # (AUTO) 0.7 K/uL (0.1-1.0); MONOCYTES % (AUTO) 14.1 % (3.0-13.0); NEUTROPHILS # (AUTO) 2.8 K/uL (1.8-7.7); NEUTROPHILS % (AUTO) 56.8 % (40.0-77.0); PLATELET COUNT (AUTO) 188 K/uL (130-400); RED CELL DISTRIBUTION WIDTH 12.7 % (11.0-15.5); WHITE BLOOD COUNT (AUTO) 4.9 K/uL (4.8-10.8)
--- NOTE | 2024-11-13 11:13 | PN ---
This is a 59-year-old male status post fall with right 10th rib fracture Interval history: This 59-year-old male seen in his room resting Patient is still reporting right rib discomfort and pain Patient with lidocaine patch in place Patient has not started with IS Labs and vitals stable No other acute events reported at this time Physical exam General: Awake alert and oriented Heart: Regular rate and rhythm} Lungs: Clear to auscultation no distress Right rib discomfort Abdomen: [Soft, nontender, nondistended Assessment : This is a 59-year-old male status post fall Plan: Patient to continue with lidocaine patch for fentanyl pain management IS to be ordered for patient and importance of compliance stressed the patient Continue with diet as tolerated No trauma intervention at this time Patient to continue with current medical management Vitals/Labs Vital Signs Date Time Temp Pulse Resp B/P (MAP) Pulse Ox O2 Delivery O2 Flow Rate FiO2 11/13/24 08:51 96 Room Air* 0 21 11/13/24 08:00 98.2 82 19 135/79 Laboratory Tests 11/13/24 05:36 Medications Current Medications Iohexol 35,000 mg STK-MED ONCE IV; Start 11/12/24 at 03:25; Stop 11/12/24 at 03:25; Status DC Ondansetron HCl 4 mg ONCE ONCE IVP Last administered on 11/12/24at 05:59; Start 11/12/24 at 06:00; Stop 11/12/24 at 06:01; Status DC Morphine Sulfate 2 mg ONCE ONCE IVP Last administered on 11/12/24at 05:59; Start 11/12/24 at 06:00; Stop 11/12/24 at 06:01; Status DC Acetaminophen 650 mg Q4H PRN PO; Start 11/12/24 at 06:30; Stop 12/12/24 at 06:29 Famotidine 20 mg BID PO Last administered on 11/13/24at 08:38; Start 11/12/24 at 09:00; Stop 12/12/24 at 08:59 Potassium Chloride 100 ml @ 100 mls/hr AD PRN IV; Start 11/12/24 at 06:30; Stop 12/12/24 at 06:29 Potassium Chloride 20 meq AD PRN PO; Start 11/12/24 at 06:30; Stop 12/12/24 at 06:29 Potassium Chloride 20 meq AD PRN PO; Start 11/12/24 at 06:30; Stop 12/12/24 at 06:29 Magnesium Sulfate 50 ml @ 0 mls/hr PROTOCOL PRN IV; Start 11/12/24 at 06:30; Stop 12/12/24 at 06:29 Chlordiazepoxide HCl 25 mg Q2H PRN PO Last administered on 11/12/24at 21:55; Start 11/12/24 at 06:30; Stop 11/19/24 at 06:29 Lorazepam 2 mg Q4H PRN IVP; Start 11/12/24 at 06:30; Stop 11/19/24 at 06:29 Thiamine HCl 100 mg/Folic Acid 1 mg/Multivitamins/ Minerals 10 ml/ Sodium Chloride 1,011.2 ml @ 100 mls/ hr Q24H IV Last administered on 11/13/24at 08:38; Start 11/12/24 at 06:30; Stop 11/14/24 at 16:37 Pharmacy Profile Note 1 each PROTOCOL PRN MISC; Start 11/12/24 at 06:30; Stop 11/19/24 at 06:29 Folic Acid 1 mg DAILY PO Last administered on 11/13/24at 08:38; Start 11/12/24 at 09:00; Stop 12/12/24 at 08:59 Thiamine HCl 100 mg DAILY IVP Last administered on 11/13/24at 08:38; Start 11/12/24 at 09:00; Stop 12/12/24 at 08:59 Ondansetron HCl 4 mg Q6H PRN IVP; Start 11/12/24 at 06:30; Stop 12/12/24 at 06:29 Acetaminophen/ Hydrocodone Bitart 1 tab Q6H PRN PO Last administered on 11/13/24at 03:44; Start 11/12/24 at 06:30; Stop 11/17/24 at 06:29 Insulin Human Regular INSULIN SLIDING SCAL... ACHS SQ Last administered on 11/13/24at 05:51; Start 11/12/24 at 07:30; Stop 12/12/24 at 07:29 Morphine Sulfate 2 mg Q4H PRN IVP Last administered on 11/13/24at 08:38; Start 11/12/24 at 11:30; Stop 11/19/24 at 11:29 Lidocaine 1 each DAILY TP Last administered on 11/13/24at 08:38; Start 11/12/24 at 11:30; Stop 12/12/24 at 11:29 Hydralazine HCl 5 mg Q4H PRN IV; Start 11/12/24 at 13:30; Stop 12/12/24 at 13:29 Docusate Sodium 100 mg BID PO Last administered on 11/13/24at 08:38; Start 11/12/24 at 21:00; Stop 12/12/24 at 20:59 Hydromorphone HCl 1 mg ONCE ONCE IVP Last administered on 11/12/24at 13:58; Start 11/12/24 at 14:00; Stop 11/12/24 at 14:01; Status DC Benzonatate 100 mg Q8H PRN PO Last administered on 11/13/24at 05:52; Start 11/12/24 at 14:00; Stop 12/12/24 at 13:59 Diltiazem HCl 30 mg Q6H PO; Start 11/13/24 at 11:30; Stop 12/13/24 at 11:29 JUSTIN ADAME Jr. Nov 13, 2024 11:13
[2024-11-13 11:15] LABS: BILIRUBIN,TOTAL 0.6 mg/dL (0.2-1.0); CREATININE 0.7 mg/dL (0.5-1.3); MAGNESIUM 1.5 mg/dL (1.80-2.40); POTASSIUM 3.7 mmol/L (3.5-5.1); TOTAL PROTEIN, SERUM 6.8 g/dL (6.0-8.3)
[2024-11-13] MEDS: cefTRIAXone 1G VIAL IVPB SCH (11:40)
[2024-11-13] MEDS: dilTIAZem 60MG TAB PO SCH (11:40)
[2024-11-13 12:00] VITALS: BP 112/75; PULSE 89; RESP 19; TEMP 98.9
--- NOTE | 2024-11-13 12:41 | HMCIMG ---
CHEST 1VW HISTORY: Fever COMPARISON: 02/15/2018 FINDINGS: A frontal projection of the chest was obtained. Mild bilateral pulmonary infiltrates are seen may be related to mild pulmonary vascular congestion with possible superimposed pneumonitis. The heart is borderline enlarged. Degenerative changes are seen. No evidence of aortic calcification is seen. IMPRESSION: 1. Mild bilateral pulmonary infiltrates are seen may be related to mild pulmonary vascular congestion with possible superimposed pneumonitis.
[2024-11-13 12:44] LABS: INFLUENZA TYPE B Negative For Type B (NEGATIVE)
[2024-11-13 13:21] LABS: INFLUENZA TYPE A Positive For Type A (NEGATIVE)
--- NOTE | 2024-11-13 13:30 | NUR ---
Order received and observed patient walking in hallway no signs of imbalance or safety concerns. Recommended abdominal binder for improved stability and reduced pain. Patient tolerated placement of abdominal binder. No need for skilled Pt at this time.
--- NOTE | 2024-11-13 13:35 | NUR ---
DCP Patient states living in an abandoned trailer in [facility]. States a friend allows him to shower at his trailer. States unemployed and homeless, remains independent and does not drive. States able to complete ADL's on his own. Denies medical devices. Denies home health services, home care provider or dialysis. PCP - [facility]. Upon discharge, states he might be able to call a friend. 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 Previous patient of [facility]; received a call while being interviewed. needs to reapply to get services. Unable to keep a job; last time worked a year ago. applied for disability and receives $290 in food stamps. His cell is [phone]. [employer] has a 30 day limit per year to stay in their quarters, difficult to stay there due to their rules. Provided a [employer] on Aging information. HX Occurence -- states fell off the steps of the abandoned trailer where he is staying, states it is not the first time he fell off of them. States he broke his some ribs. Addendum: 11/13/24 at 1354 by MONE DRISCOLL RN CM Notified CM and ALEX. Addendum: 11/13/24 at 1356 by MONE DRISCOLL RN CM Amended: Links added.
[2024-11-13] MEDS: MAGNESIUM 2GM PREMIX 50ML 50 ML IV PRN (14:34)
[2024-11-13] MEDS: OSELTAMIVIR PHOSPHATE 75 MG CAP PO ONE (14:34)
[2024-11-13 16:15] VITALS: BP 120/58; PULSE 87; RESP 19; TEMP 98.2
[2024-11-13] MEDS ORDERED: guaiFENesin-coDEINE 5 ML SYRUP PO PRN (19:00)
[2024-11-13] MEDS: guaiFENesin-coDEINE 5 ML SYRUP PO SCH (19:11)
[2024-11-13 19:43] LABS: ADD UA MICROSCOPIC YES; APPEARANCE,URINE CLEAR (CLEAR); BILIRUBIN,URINE NEGATIVE (NEGATIVE); COLOR,URINE LIGHT-YELLOW (YELLOW); GLUCOSE, URINE (UA) >=1000 mg/dL (NEGATIVE); KETONES,URINE NEGATIVE (NEGATIVE); LEUKOCYTE ESTERASE ,URINE NEGATIVE Leu/uL (NEGATIVE); NITRATE,URINE NEGATIVE (NEGATIVE); OCCULT BLOOD,URINE NEGATIVE (NEGATIVE); PROTEIN,URINE 10 mg/dL (NEGATIVE); UROBILINOGEN,URINE 0.2 mg/dL (0.2-1.0)
[2024-11-13 19:49] LABS: MUCUS,URINE RARE LPF (None Seen); RBC,URINE 0-1 /HPF (0-1); SQUAMOUS EPITHELIAL CELL,UR RARE /HPF (0-2); WBC,URINE 0-1 /HPF (0-1)
[2024-11-13 20:00] VITALS: BP 134/89; PULSE 86; RESP 20; TEMP 99.4; O2SAT 95
[2024-11-13] MEDS: OSELTAMIVIR PHOSPHATE 75 MG CAP PO SCH (20:23)
--- NOTE | 2024-11-13 21:12 | NUR ---
FALL COMPLIANCE: PT ASKED TO BE DISCONNECTED FROM IVF TO WALK AROUND IN ROOM, STATES HE FEELS ANXIETY. PT IS AMBULATING/STANDING IN PLACE WITH EYES CLOSED SWAYING BACK AND FORTH. PT INSTRUCTED TO PLEASE SIT IN CHAIR OR GO BACK TO BED. PT REFUSING TO HAVE BED ALARM PLACED. PT SAT IN BEDSIDE CHAIR. ENCOURAGED TO USE CALL LIGHT FOR ASSISTANCE, CALL [facility] WITHIN REACH.
[2024-11-14] VITALS: BP 120/73; PULSE 78; RESP 20; TEMP 98.7
[2024-11-14 04:00] VITALS: BP 145/68; PULSE 76; RESP 20; TEMP 98.9
[2024-11-14 07:13] LABS: BASOPHILS # (AUTO) 0.01 K/uL (0.00-0.20); BASOPHILS % (AUTO) 0.2 % (0.0-5.0); EOSINOPHILS # (AUTO) 0.02 K/uL (0.00-0.70); EOSINOPHILS % (AUTO) 0.4 % (0.0-8.0); HEMATOCRIT 43.9 % (42-54); IMMATURE GRANULOCYTE ABSOLUTE 0.01 K/uL (0-1); LYMPHOCYTES # (AUTO) 1.9 K/uL (1.0-4.8); LYMPHOCYTES % (AUTO) 37.9 % (21.0-51.0); MEAN CORPUSCULAR HEMOGLOBIN 28.9 pg (27.0-33.0); MEAN CORPUSCULAR HGB CONC 33.7 g/dL (32.0-36.0); MEAN CORPUSCULAR VOLUME 85.7 fL (79-99); MONOCYTES # (AUTO) 0.6 K/uL (0.1-1.0); MONOCYTES % (AUTO) 11.6 % (3.0-13.0); NEUTROPHILS # (AUTO) 2.5 K/uL (1.8-7.7); NEUTROPHILS % (AUTO) 49.7 % (40.0-77.0); PLATELET COUNT (AUTO) 188 K/uL (130-400); RED BLOOD CELL COUNT(AUTO) 5.12 MIL/uL (4.50-6.20); RED CELL DISTRIBUTION WIDTH 12.5 % (11.0-15.5)
[2024-11-14 07:33] LABS: ALBUMIN 3.2 g/dL (3.5-5.0); BILIRUBIN,TOTAL 0.5 mg/dL (0.2-1.0); CREATININE 0.8 mg/dL (0.5-1.3); MAGNESIUM 1.8 mg/dL (1.80-2.40); TOTAL PROTEIN, SERUM 7.4 g/dL (6.0-8.3)
[2024-11-14 08:00] VITALS: BP 139/73; PULSE 69; RESP 18; TEMP 98.6
[2024-11-14 08:06] VITALS: O2SAT 95
[2024-11-14] MEDS ORDERED: THIA500T3 PO (10:00)
[2024-11-14] MEDS ORDERED: CEFD300C3 PO (10:00)
[2024-11-14] MEDS ORDERED: BENZ-39 PO (10:00)
[2024-11-14] MEDS ORDERED: OSEL75 PO (10:00)
[2024-11-14] MEDS ORDERED: ACET-2079 PO (10:00)
[2024-11-14] MEDS ORDERED: AMLO5TAB5 PO (10:11)
--- NOTE | 2024-11-14 10:14 | DS ---
Discharge Summary Hospital Course Summary: This is a 59-year-old male that presents in ER with right rib pain apparently patient had a fall at home prior coming to ED. apparently patient reports he slipped on stairs and landed on his right side. ER WORKUP WAS CONSISTENT WITH RIGHT 10TH RIB FRACTURE IN PERINEPHRIC STRANDING CRITICAL TEAM WAS CONSULTED. 11/13/24 patient examined patient on his needs bedside patient unable to late on his back we will have Physical therapy work with patient discussed patient's condition physical therapist. Patient continues on pain medication around the clock. Patient lives alone. Case management was made aware discharge planning. Reassess: PT work with patient applied abd binding now patient is able to stand upright: with some pain improvement. Flu A positive : started on tamiflu he is currently on room air 11/14/24 patient is doing much better today with abdominal binder and pain management no trauma intervention on this admission. Encouraged patient to use IS while awake when discharged. Patient tested positive for influenza droplet isolation avoid crowds for five days. To continue with Tylenol [id number] for fevers. Patient will be discharged on Tylenol No. For pain follow-up trauma team one-week. Patient apparently does not have a PCP encourage patient to find a PCP illicit providers were provided and community resources with provided given to alcohol abuse and smoking. Patient was started on blood pressure medication on this admission has a history of hypertensive untreated. Norvasc5 mg p.o. daily diet was discussed with patient risk factors modification as well. Procedure(s): REASON: RIGHT FLANK/ RIB PAIN ORDERING PHYSICIAN: ROC HENDERSON MD PROCEDURE: ABD PEL WO - CT ABDOMEN/PELVIS W/O CONTRAST CT ABDOMEN/PELVIS W/O CONTRAST HISTORY: Right flank pain COMPARISON: None TECHNIQUE: Multiple sequential axial images of the abdomen and pelvis were obtained from the dome of the diaphragm through symphysis pubis. Patient was not given contrast through intravenous route. Oral contrast was not given. FINDINGS: Right diaphragmatic pleural calcifications are seen suggestive of prior asbestos exposure. Tiny right pleural effusion is seen. Study is limited due to lack of intravenous contrast.. There is right ninth posterior rib fracture with mild displacement. There is no evidence of parenchymal disease or pulmonary nodule of the visualized lower lungs. Degenerative changes of the thoracolumbar spine are present. The heart is not enlarged. The liver, spleen, adrenal glands and pancreas are unremarkable. There is no evidence of hydronephrosis bilaterally. No evidence of renal stone is seen. There is left perinephric fat stranding may be related to pyelonephritis. Urinalysis correlation may be helpful. Fecal material is seen in the colon. There are normal size retroperitoneal and mesenteric lymph nodes. No ascites is seen. Atherosclerotic changes are present. Pelvic sidewalls are symmetric bilaterally. Bladder is well distended without wall thickening. IMPRESSION: 1. There is left perinephric fat stranding may be related to pyelonephritis. Urinalysis correlation may be helpful. There is fracture with mild displacement involving the right posterior ninth rib. Assessment/Plan: discharged dx's: febrile secondary to positive influenza A discharged with tamiflu 75 mg po bid for 4 more days. viral syndrome right posterior 10th rib fracture SECONDARY TO MECHANICAL GROUND LEVEL FALL POA: No trauma intervention will cont with abd binder. possible underlying contusion as well as possible contusion of right kidney acute intractable rib pain Alcohol intoxication secondary to alcohol dependency POA Active smoker POA electrolytes derangement: hyponatremia hypomagnesemia DM Type II with Hyperglycemia Obesity BMI 40 PLAN: [ ] ADMISSION DATE: 11/12/24 DISCHARGE DATE: 11/14/24 DISPOSITION: home CONDITION: stable COMPLIANCE MGR(S): "Trauma team FOLLOW UP APPOINTMENT(S): DR Brock one wk NO pcp: LIST OF PROVIDERS PROVIDED PROCEDURES: none IMAGING (S) report attached to summary : CT ABD/PELVIS MICROBIOLOGY: report attached to summary; ACTIVITY: ab jimmy as tolerated HOME MEDICATIONS: NONE PROFILE NEW MEDICATIONS Acetaminophen with Codeine (Acetaminophen-Cod #3 Tablet) 300 Mg-30 Mg Tablet Benzonatate (Tessalon Perles) 100 Mg Cap Cefdinir 300 Mg Capsule Oseltamivir Phosphate (Tamiflu) 75 Mg Cap Thiamine HCl 500 Mg Tablet Norvasc 5 mg po daily TEACHING: continue to use IS at home while awake, FALL PRECAUTION SMOKING AND ETOH CESSATION AND COMMUNITY RESOURCES PROVIDED. RISK FACTOR MODIFICATION DIET AND EXERCISE WEIGHT MANAGEMENT Emergency instructions: The patient was instructed to present to the nearest Emergency Department or call 911 should their symptoms return or worsen. Home Medications: Active Scripts Acetaminophen with Codeine (Acetaminophen-Cod #3 Tablet) 300 Mg-30 Mg Tablet, 1 TAB PO Q6HPRN PRN for pain for 7 Days, #10 TAB 0 Refills Prov:JENNIFER LEONARD NP 11/14/24 Discontinued Scripts Ciprofloxacin HCl/Dexameth (Ciprodex Otic Suspension) 7.5 Ml Drops.susp, 7.5 ML OT TID for 5 Days, #4 DROP Prov:JATIN GOMEZ MD 02/27/22 Amoxicillin (Amoxicillin) 500 Mg Capsule, 500 MG PO TID for 10 Days, #30 CAP 0 Refills Prov:JATIN GOMEZ MD 02/27/22 Acetaminophen with Codeine (Acetaminophen-Cod #3 Tablet) 1 Each Tablet, 1 EACH PO QID, #15 TAB Prov:ALEIDA MIRANDA MD 02/25/22 Ibuprofen (Ibuprofen) 600 Mg Tablet, 600 MG PO Q6H PRN for PAIN, #30 TAB Prov:ALEIDA MIRANDA MD 02/25/22 Ciprofloxacin HCl/Dexameth (Ciprodex Otic Suspension) 7.5 Ml Drops.susp, 4 DROP OT BID for 7 Days, #5 ML Prov:ALEIDA MIRANDA MD 02/25/22 New Medications: Acetaminophen with Codeine (Acetaminophen-Cod #3 Tablet) 300 Mg-30 Mg Tablet 1 TAB PO Q6HPRN PRN for pain for 7 Days, #10 TAB 0 Refills Benzonatate (Tessalon Perles) 100 Mg Cap 1 CAP PO TID PRN for COUGH for 10 Days, #30 CAP 0 Refills Cefdinir (Cefdinir) 300 Mg Capsule 1 CAP PO BID for 5 Days, #10 CAP 0 Refills Oseltamivir Phosphate (Tamiflu) 75 Mg Cap 1 CAP PO BID for 4 Days, #8 CAP 0 Refills Thiamine HCl (Thiamine HCl) 500 Mg Tablet 1000 MG PO DAILY for 5 Days, #5 TAB Time spent arranging discharge: 31-60 minutes ATTESTATION BY PHYSICIAN I have seen and examined the patient. I reviewed the documentation, medical decision making, and treatment plan as noted by the mid-level provider above. I agree with the findings and plan of care. NINI OROZCO MD, ELIZABETH NP Nov 14, 2024 10:14
--- NOTE | 2024-11-14 11:31 | PN ---
This is a 59-year-old male status post fall with right 10th rib fracture Interval history: This 59-year-old male seen in his room Patient has been compliant IS Chest pain improving from rib fracture Vitals stable Patient continues to lidocaine patch No other acute events reported Physical exam General: Awake alert and oriented Heart: Regular rate and rhythm} Lungs: Clear to auscultation no distress Abdomen: [Soft, nontender, nondistended Assessment : This is a 59-year-old male status post fall Plan: Patient continue with the aggressive IS No further trauma intervention planned at this time Patient is cleared from surgical standpoint for discharge once cleared by medical team\ Trauma team to sign off at this time. Thank you Vitals/Labs Vital Signs Date Time Temp Pulse Resp B/P (MAP) Pulse Ox O2 Delivery O2 Flow Rate FiO2 11/14/24 08:06 95 Room Air* 0 21 11/14/24 08:00 98.6 69 18 139/73 Laboratory Tests 11/14/24 06:20 Medications Current Medications Iohexol 35,000 mg STK-MED ONCE IV; Start 11/12/24 at 03:25; Stop 11/12/24 at 03:25; Status DC Ondansetron HCl 4 mg ONCE ONCE IVP Last administered on 11/12/24at 05:59; Start 11/12/24 at 06:00; Stop 11/12/24 at 06:01; Status DC Morphine Sulfate 2 mg ONCE ONCE IVP Last administered on 11/12/24at 05:59; Start 11/12/24 at 06:00; Stop 11/12/24 at 06:01; Status DC Acetaminophen 650 mg Q4H PRN PO; Start 11/12/24 at 06:30; Stop 12/12/24 at 06:29 Famotidine 20 mg BID PO Last administered on 11/14/24at 08:00; Start 11/12/24 at 09:00; Stop 12/12/24 at 08:59 Potassium Chloride 100 ml @ 100 mls/hr AD PRN IV; Start 11/12/24 at 06:30; Stop 12/12/24 at 06:29 Potassium Chloride 20 meq AD PRN PO; Start 11/12/24 at 06:30; Stop 12/12/24 at 06:29 Potassium Chloride 20 meq AD PRN PO; Start 11/12/24 at 06:30; Stop 12/12/24 at 06:29 Magnesium Sulfate 50 ml @ 0 mls/hr PROTOCOL PRN IV Last administered on 11/13/24at 14:34; Start 11/12/24 at 06:30; Stop 12/12/24 at 06:29 Chlordiazepoxide HCl 25 mg Q2H PRN PO Last administered on 11/12/24at 21:55; Start 11/12/24 at 06:30; Stop 11/19/24 at 06:29 Lorazepam 2 mg Q4H PRN IVP; Start 11/12/24 at 06:30; Stop 11/19/24 at 06:29 Thiamine HCl 100 mg/Folic Acid 1 mg/Multivitamins/ Minerals 10 ml/ Sodium Chloride 1,011.2 ml @ 100 mls/ hr Q24H IV Last administered on 11/14/24at 06:02; Start 11/12/24 at 06:30; Stop 11/14/24 at 16:37 Pharmacy Profile Note 1 each PROTOCOL PRN MISC; Start 11/12/24 at 06:30; Stop 11/19/24 at 06:29 Folic Acid 1 mg DAILY PO Last administered on 11/14/24at 07:59; Start 11/12/24 at 09:00; Stop 12/12/24 at 08:59 Thiamine HCl 100 mg DAILY IVP Last administered on 11/14/24at 07:59; Start 11/12/24 at 09:00; Stop 12/12/24 at 08:59 Ondansetron HCl 4 mg Q6H PRN IVP; Start 11/12/24 at 06:30; Stop 12/12/24 at 06:29 Acetaminophen/ Hydrocodone Bitart 1 tab Q6H PRN PO Last administered on 11/14/24at 08:00; Start 11/12/24 at 06:30; Stop 11/17/24 at 06:29 Insulin Human Regular INSULIN SLIDING SCAL... ACHS SQ Last administered on 11/14/24at 06:03; Start 11/12/24 at 07:30; Stop 12/12/24 at 07:29 Morphine Sulfate 2 mg Q4H PRN IVP Last administered on 11/14/24at 06:07; Start 11/12/24 at 11:30; Stop 11/19/24 at 11:29 Lidocaine 1 each DAILY TP Last administered on 11/14/24at 07:59; Start 11/12/24 at 11:30; Stop 12/12/24 at 11:29 Hydralazine HCl 5 mg Q4H PRN IV; Start 11/12/24 at 13:30; Stop 12/12/24 at 13:29 Docusate Sodium 100 mg BID PO Last administered on 11/14/24at 07:59; Start 11/12/24 at 21:00; Stop 12/12/24 at 20:59 Hydromorphone HCl 1 mg ONCE ONCE IVP Last administered on 11/12/24at 13:58; Start 11/12/24 at 14:00; Stop 11/12/24 at 14:01; Status DC Benzonatate 100 mg Q8H PRN PO Last administered on 11/13/24at 12:24; Start 11/12/24 at 14:00; Stop 12/12/24 at 13:59 Diltiazem HCl 30 mg Q6H PO Last administered on 11/14/24at 06:02; Start 11/13/24 at 11:30; Stop 12/13/24 at 11:29 Ceftriaxone Sodium 1 gm Q24H IVPB Last administered on 11/13/24at 11:40; Start 11/13/24 at 11:30; Stop 11/23/24 at 11:29 Oseltamivir Phosphate 75 mg ONCE ONCE PO Last administered on 11/13/24at 14:34; Start 11/13/24 at 14:00; Stop 11/13/24 at 14:02; Status DC Oseltamivir Phosphate 75 mg BID PO Last administered on 11/14/24at 07:59; Start 11/13/24 at 21:00; Stop 11/18/24 at 20:59 Guaifenesin/ Codeine Phosphate 10 ml Q6H PRN PO; Start 11/13/24 at 19:00; Stop 12/13/24 at 18:59 Guaifenesin/ Codeine Phosphate 10 ml Q6H PO Last administered on 11/14/24at 06:02; Start 11/13/24 at 19:00; Stop 12/13/24 at 18:59 JUSTIN ADAME Jr. Nov 14, 2024 11:31
[2024-11-14 12:00] VITALS: BP_SYST 140; BP_SYST 145; BP_DIAS 58; BP_DIAS 73; PULSE 58; PULSE 70; RESP 18; RESP 19; TEMP 97.8; TEMP 98.4
--- NOTE | 2024-11-14 14:10 | NUR ---
DISCHARGE PATIENT HAS BEEN DISCHARGED HOME. PIV REMOVED. PRESSURE GAUZE AND TAPE APPLIED TO SITE. PATIENT VERBALIZES UNDERSTANDING OF DISCHARGE PAPERWORK. NEW MEDS HAVE BEEN SENT TO PATIENT'S PREFERRED PHARMACY. PATIENT WHEELED DOWN TO PRIVATE AUTOMOBILE BY NURSE.
== END 2024-11-14 14:10 | disposition home or self-care (01) | DRG 206 ==
LOC: EDH 01:49 → EDHIP 01:50 → 4DH 21:04
PROVIDERS: ADMIT Internal Medicine; ATTEND Internal Medicine
DX: S22.31XA Fracture of one rib, right side, initial encounter for closed fracture (principal); E87.1 Hypo-osmolality and hyponatremia; F10.229 Alcohol dependence with intoxication, unspecified; E66.9 Obesity, unspecified; E11.65 Type 2 diabetes mellitus with hyperglycemia; F17.210 Nicotine dependence, cigarettes, uncomplicated; I10 Essential (primary) hypertension; J10.1 Influenza due to other identified influenza virus with other respiratory manifestations; E83.42 Hypomagnesemia; W10.9XXA Fall (on) (from) unspecified stairs and steps, initial encounter; Z91.199 Patient's noncompliance with other medical treatment and regimen due to unspecified reason; Y92.009 Unspecified place in unspecified non-institutional (private) residence as the place of occurrence of the external cause; Y93.89 Activity, other specified; Y99.8 Other external cause status; Z68.38 Body mass index [BMI] 38.0-38.9, adult
CPT/HCPCS: 36415; 71045; 74176; 80048; 80053; 80061; 80305; 81001; 82550; 82948; 83036; 83735; 84443; 85025; 87040; 87804; 96374; 96375; 99285; G0378; J0696; J1171; J1815; J2270; J2405; J3411; J3475; J3490; J7030; Q9967